=== PATIENT | female | born 1990 | race Caucasian/White ===

== ENCOUNTER 2018-04-12 23:41 | Emergency (ER) | payer BC, SELFPAY ==
--- NOTE | 2018-04-13 07:41 | RAD ---
CHEST 2 VIEWS: Date: 04/12/18 HISTORY: Cough. COMPARISON: None. FINDINGS: Lungs are clear. No pneumothorax or effusion. Cardiac silhouette and mediastinal contours are within normal limits. IMPRESSION: No acute intrathoracic abnormality. POS: [id number]
== END 2018-04-13 01:15 | disposition home or self-care (01) ==
LOC: ERS 23:41
DX: J20.9 Acute bronchitis, unspecified (principal); R09.1 Pleurisy
CPT/HCPCS: 71046